=== PATIENT | female | born 1955 | race Caucasian/White ===

== ENCOUNTER 2018-09-16 19:46 | Inpatient (IN) | payer BC ==
[~2018-09-16] VITALS: Ht 160 cm; Wt 64.9 kg
[2018-09-16 19:51] VITALS: BP 105/60
--- NOTE | 2018-09-16 19:51 | NUR ---
TO BED # 9 VIA W/C, REPORT GIVEN TO LORETTA BENSON
--- NOTE | 2018-09-16 20:11 | NUR ---
63/F presents to ED for evaluation of left foot pain, and left upper arm pain s/p fall. Pt reports she fell from a 6 foot ladder on Wednesday and was taken to [facility] where she was dx with a left heel fracture and left humerus fracture. Pt noted with a short leg splint to left foot and left arm in a sling, no splint. Pt states she has been unable to care for herself at home. Pt states she called her PMD and was advised to come to ED for evaluation. Pt c/o severe pain to left foot and left arm. Pt states "They kicked me out since I'm not a [facility] patient." AOX4, clear speech. NAD noted at this time. VSS. Pt waiting for ERMD. Will continue to monitor.
[2018-09-16] MEDS ORDERED: ACETAMINOPHEN/CODEINE 300/30MG 1 TAB PO ONE (20:30)
--- NOTE | 2018-09-16 20:44 | NUR ---
X-Ray at bedside.
--- NOTE | 2018-09-16 21:02 | NUR ---
Kelly lewis in ED - 09/16/18 at 2102 by [facility] Pt taken to CT via
--- NOTE | 2018-09-16 21:02 | NUR ---
PT TAKEN TO CT AT THIS TIME
--- NOTE | 2018-09-16 21:19 | NUR ---
Kelly lewis in ED - 09/16/18 at 2119 by DAVON PT RETURNED FROM CT AT THIS TIME
--- NOTE | 2018-09-16 21:19 | NUR ---
PATIENT RETURN FROM CT.
[2018-09-16] MEDS ORDERED: LEVO0.114 PO (22:09)
[2018-09-16] MEDS ORDERED: MORPHINE SULFATE 2 MG/ML SYR IVP PRN (22:20)
[2018-09-16] MEDS ORDERED: ZOLPIDEM 5 MG TAB PO PRN (22:20)
[2018-09-16] MEDS ORDERED: ACETAMINOPHEN 325 MG TAB PO PRN (22:20)
[2018-09-16] MEDS ORDERED: DOCUSATE SODIUM 100 MG GELCAP PO PRN (22:20)
[2018-09-16] MEDS ORDERED: LORazepam 2 MG/ML VIAL IM/IVP PRN (22:20)
[2018-09-16] MEDS ORDERED: ONDANSETRON 4 MG/2 ML VIAL IM/IVP PRN (22:20)
--- NOTE | 2018-09-16 22:22 | NUR ---
Admit orders input by resident.
[2018-09-16] MEDS ORDERED: PANTOPRAZOLE 40 MG TABEC PO SCH (23:00)
--- NOTE | 2018-09-16 23:25 | NUR ---
Patient will be admitted to care of Dr. Gama. Admited to TELE. Will go to room 124-B. Belongings list completed. Report to Dee BENSON.
[2018-09-16 23:30] VITALS: BP 111/41
[2018-09-16] MEDS ORDERED: ALUMINUM HYD/MAG/SIMETHICONE 30 ML UDC PO SCH (23:30)
--- NOTE | 2018-09-16 23:30 | NUR ---
PT ARRIVED VIA GURNEY AND IS CURRENTLY UNABLE TO WALK DUE TO LEFT CALCANEUS FRACTURE. PT ALSO HAS LEFT HUMERUS FRACTURE. PT SCOOTED FROM GURNEY TO BED. PT TOLERATED WELL. RECEIVED REPORT FROM ER NURSE. PT AOX4, ON ROOM AIR WITH RIGHT HAND #20G. DISCUSSED PLAN OF CARE AND PT VERBALIZED UNDERSTANDING. VITAL SIGNS TAKEN AND MRSA SWAB COLLECTED- PT TOLERATED WELL. NO S/S OF RESPIRATORY DISTRESS OR DISCOMFORT NOTED AT THIS TIME. BED IN LOWEST POSITION, BED BREAKS ON, BOTH SIDE RAILS UP, BE ALARM ON AND FALL PRECAUTIONS IN PLACE. BEDSIDE TABLE AND CALL LIGHT TO BE KEPT ON RIGHT SIDE OF BODY. WILL CONTINUE TO MONITOR.
[2018-09-16 23:34] LABS: BASOPHILS # (AUTO) 0.1 K/uL (0.00-0.22); BASOPHILS % (AUTO) 0.8 % (0.0-2.0); EOSINOPHILS # (AUTO) 0.2 K/uL (0-0.4); EOSINOPHILS % (AUTO) 1.7 % (0.0-4.0); HEMATOCRIT 39.6 % (36-48); HEMOGLOBIN 13.1 g/dL (12.0-16.0); LYMPHOCYTES % (AUTO) 26.7 % (20.5-51.1); MEAN CORPUSCULAR HEMOGLOBIN 30 pg (27-31); MEAN CORPUSCULAR HGB CONC 33 g/dL (33-37); NEUTROPHILS # (AUTO) 6.9 K/uL (1.8-7.7); NEUTROPHILS % (AUTO) 61.8 % (42.2-75.2); PLATELET COUNT (AUTO) 163 K/uL (140-450); RED BLOOD CELL COUNT(AUTO) 4.31 MIL/uL (4.20-5.40); RED CELL DISTRIBUTION WIDTH 13.9 % (11.6-13.7); WHITE BLOOD COUNT (AUTO) 11.1 K/uL (4.8-10.8)
[2018-09-16 23:56] LABS: ALBUMIN 3.5 g/dL (3.4-5.0); CHOL/HDL RATIO 5.4 (1-4.5); CREATININE 1.1 mg/dL (0.6-1.3); MAGNESIUM 2.2 mg/dL (1.8-2.4); THYROID STIMULATING HORMONE 21.62 uIU/mL (0.34-3.74); TOTAL BILIRUBIN 0.4 mg/dL (0.0-1.0)
[2018-09-17 00:10] LABS: PROTHROMBIN TIME 9.4 secs (10.8-13.4)
[2018-09-17] MEDS ORDERED: ACETAMINOPHEN/CODEINE 300/30MG 1 TAB PO PRN (00:10)
[2018-09-17] MEDS: NACL 0.9% 1,000 ML IV SCH ×2 (00:23→13:54)
--- NOTE | 2018-09-17 00:23 | NUR ---
SCHEDULED MEDICATIONS GIVEN AND TOLERATED WELL. PT HAS NOT HAD A BM SINCE Wednesday09/13/2018 AND WAS GIVEN COLACE. MD GARDNER AWARE. PT TOLERATED WELL. NEW BAG OF IVF HUNG. PT REFUSING SUPPOSITORY AT THIS TIME. NO S/S OF RESPIRATORY DISTRESS OR DISCOMFORT NOTED AT THIS TIME. WILL CONTINUE TO MONITOR.
[2018-09-17] MEDS ORDERED: BISACODYL 10 MG SUPP RC SCH ×3 (01:00→22:00)
--- NOTE | 2018-09-17 02:00 | NUR ---
PT SLEEPING IN BED. NO S/S OF RESPIRATORY DISTRESS OR DISCOMFORT NOTED AT THIS TIME. WILL CONTINUE TO MONITOR.
[2018-09-17 04:00] VITALS: BP 102/55
--- NOTE | 2018-09-17 04:00 | NUR ---
VITAL SIGNS TAKEN AND TOLERATED WELL. NO S/S OF RESPIRATORY DISTRESS OR DISCOMFORT NOTED AT THIS TIME. WILL CONTINUE TO MONITOR.
--- NOTE | 2018-09-17 04:20 | NUR ---
CONSENT SIGNED FOR MEDICAL RECORDS FROM [facility] TO BE RELEASED TO [facility] BY PT. FORMS HAVE BEEN FAXED AND RECEIVED SUCCESSFULLY.
[2018-09-17] MEDS: LEVOTHYROXINE 0.112 MG TAB PO SCH (06:01)
[2018-09-17] MEDS: PANTOPRAZOLE 40 MG TABEC PO SCH (06:01)
--- NOTE | 2018-09-17 06:01 | NUR ---
SCHEDULED MEDICATION GIVEN AND TOLERATED WELL. NO S/S OF RESPIRATORY DISTRESS OR DISCOMFORT NOTED AT THIS TIME. WILL CONTINUE TO MONITOR.
--- NOTE | 2018-09-17 07:19 | NUR ---
ENDORSED PT CARE TO DAY SHIFT NURSE KASHIF FOR CONTINUITY OF CARE.
--- NOTE | 2018-09-17 07:20 | NUR ---
RECEIVED REPORT FROM THE TURRET PUNCH PRESS OPERATOR NURSE AT BEDSIDE FOR CONTINUITY OF CARE. PT IS AWAKE AND ORIENTED. INTRODUCED MYSELF AND UPDATED THE BOARD. PT IS ON TELE. ON BEDREST. PT IS WEARING AN L ARM SLING AND LLE CAST. OTHERWISE SKIN IS INTACT. LAST BM ON 09/13/18. IV ON R HAND 20G, NS AT 60ML INFUSING. L LEG IS ELEVATED WITH PILLOW. LABS ARE UNREMARKABLE. PAIN LEVEL ABOUT A 3/10. TOLERABLE. WILL ASK FOR PAIN MED WHEN IT GETS WORSE. PT IS NPO EXCEPT MEDS. AWAITING DR SCRUGGS FOR CONSULT. WILL CONTINUE TO MONITOR PT.
[2018-09-17 07:24] LABS: BASOPHILS % (AUTO) 0.5 % (0.0-2.0); EOSINOPHILS # (AUTO) 0.2 K/uL (0-0.4); EOSINOPHILS % (AUTO) 2.9 % (0.0-4.0); HEMATOCRIT 36.4 % (36-48); HEMOGLOBIN 12.2 g/dL (12.0-16.0); LYMPHOCYTES # (AUTO) 2.2 K/uL (2.5-16.5); LYMPHOCYTES % (AUTO) 27.7 % (20.5-51.1); MEAN CORPUSCULAR HEMOGLOBIN 31 pg (27-31); MEAN CORPUSCULAR HGB CONC 34 g/dL (33-37); MEAN CORPUSCULAR VOLUME 92.1 fL (80-94); MONOCYTES # (AUTO) 0.9 K/uL (0.8-1.0); MONOCYTES % (AUTO) 11.2 % (1.7-9.3); NEUTROPHILS # (AUTO) 4.6 K/uL (1.8-7.7); NEUTROPHILS % (AUTO) 57.7 % (42.2-75.2); PLATELET COUNT (AUTO) 143 K/uL (140-450); RED BLOOD CELL COUNT(AUTO) 3.95 MIL/uL (4.20-5.40); RED CELL DISTRIBUTION WIDTH 13.9 % (11.6-13.7); WHITE BLOOD COUNT (AUTO) 7.9 K/uL (4.8-10.8)
[2018-09-17 07:44] LABS: CARBON DIOXIDE 26.9 mmol/L (21-32); POTASSIUM 3.9 mmol/L (3.5-5.1)
[2018-09-17 07:51] LABS: MAGNESIUM 2.4 mg/dL (1.8-2.4); PHOSPHORUS 4.7 mg/dL (2.5-4.9)
[2018-09-17 08:00] VITALS: BP 139/49
[2018-09-17] MEDS: HYDROcodone/APAP 5/325 MG 1 TAB TAB PO PRN ×3 (09:15→21:59)
--- NOTE | 2018-09-17 09:17 | NUR ---
ADMINISTERED NORCO FOR PAIN. PAIN LEVEL 5/10. WILL HOLD THE SUPPOSITORY FOR LATER PER PT. SHE WOULD LIKE TO SLEEP IF SHE CAN. WILL LET ME KNOW WHEN SHE WOULD LIKE IT. PT TOLERATED WELL. WILL CONTINUE TO MONITOR PT.
--- NOTE | 2018-09-17 11:30 | NUR ---
ASSISTED PODIATRY REAPPLY THE TEMP CAST. PER PODIATRY, PT WILL BE SCHEDULED FOR SURGERY ON Wednesday. ELEVATED LEFT LEG TO REDUCE SWELLING. PT TOLERATED WELL. WILL CONTINUE TO MONITOR PT.
[2018-09-17 12:00] VITALS: BP 107/33
--- NOTE | 2018-09-17 13:45 | NUR ---
ICE PACK AND EXTRA PILLOW FOR HER PT'S L LEG TO HELP WITH INFLAMMATION AND PAIN.
[2018-09-17 16:00] VITALS: BP 102/35
--- NOTE | 2018-09-17 16:20 | NUR ---
ADMINISTERED NORCO. PT IN PAIN 03/27. PT TOLERATED WELL. WILL CONTINUE TO MONITOR PT.
--- NOTE | 2018-09-17 18:39 | NUR ---
ADMINISTERED THE SUPPOSITORY. PT REQUESTED IT. WILL CONTINUE TO MONITOR PT. CULLET TRUCKER'S NOTIFIED TO KEEP CLOSE MONITORING.
[2018-09-17] MEDS ORDERED: BISACODYL 10 MG SUPP RC ONE (18:40)
--- NOTE | 2018-09-17 19:10 | NUR ---
ENDORSED PT TO THE MAINTENANCE ASSOCIATE NURSE AT BEDSIDE FOR CONTINUITY OF CARE. PT IS IN STABLE CONDITION. NO BM YET.
--- NOTE | 2018-09-17 19:12 | NUR ---
RECEIVED REPORT FROM DAY SHIFT NURSE. AAOX4. NO C/O PAIN AT THIS TIME. NO SOB. ON ROOM AIR. IV TO RIGHT FA #20G, NS AT 60 ML, INFUSING WELL. PT HAS LEFT ARM SLING AND CAST TO LEFT LOWER EXT. SAFETY PRECAUTION IN PLACE. CALL LIGHT WITHIN REACH.
[2018-09-17 20:00] VITALS: BP 110/44
--- NOTE | 2018-09-17 21:35 | NUR ---
PT HAD MODERATE BMX1. DR. GARDNER MADE AWARE. STATED SHE WILL CANCEL DULCOLAX SUPP ORDER DUE AT 2200.
--- NOTE | 2018-09-17 23:45 | NUR ---
PT AWAKE, WATCHING TV. NO C/O PAIN AT THIS TIME. NO SOB. IVF INFUSING WELL. ICE PACK BEHIND LEFT KNEE IN PLACE.
[2018-09-18] VITALS: BP 103/55
--- NOTE | 2018-09-18 02:00 | NUR ---
PT SLEEPING BUT EASILY AROUSABLE. RESP EVEN AND UNLABORED. NO S/S OF PAIN. CALL LIGHT WITHIN REACH.
[2018-09-18] MEDS: HYDROcodone/APAP 5/325 MG 1 TAB TAB PO PRN ×4 (02:27→19:49)
[2018-09-18 04:00] VITALS: BP 109/47
--- NOTE | 2018-09-18 04:30 | NUR ---
PT SLEEPING. NO S/S OF OF PAIN. NO S/S OF RESP DISTRESS. CALL LIGHT WITHIN REACH.
--- NOTE | 2018-09-18 05:45 | NUR ---
PT AWAKE. PT ASKED FOR BEDPAN. BEDPAN PROVIDED. ALL NEEDS MET AT THIS TIME. SAFETY PRECAUTION IN PLACE. CALL LIGHT WITHIN REACH.
[2018-09-18] MEDS: PANTOPRAZOLE 40 MG TABEC PO SCH (05:48)
[2018-09-18] MEDS: LEVOTHYROXINE 0.112 MG TAB PO SCH (05:48)
[2018-09-18 07:05] LABS: BASOPHILS % (AUTO) 0.5 % (0.0-2.0); EOSINOPHILS # (AUTO) 0.2 K/uL (0-0.4); EOSINOPHILS % (AUTO) 3.9 % (0.0-4.0); HEMOGLOBIN 11.5 g/dL (12.0-16.0); LYMPHOCYTES # (AUTO) 1.7 K/uL (2.5-16.5); LYMPHOCYTES % (AUTO) 30.3 % (20.5-51.1); MEAN CORPUSCULAR HEMOGLOBIN 31 pg (27-31); MEAN CORPUSCULAR HGB CONC 34 g/dL (33-37); MEAN CORPUSCULAR VOLUME 91.8 fL (80-94); MONOCYTES # (AUTO) 0.6 K/uL (0.8-1.0); MONOCYTES % (AUTO) 9.8 % (1.7-9.3); NEUTROPHILS # (AUTO) 3.2 K/uL (1.8-7.7); NEUTROPHILS % (AUTO) 55.5 % (42.2-75.2); PLATELET COUNT (AUTO) 165 K/uL (140-450); RED BLOOD CELL COUNT(AUTO) 3.71 MIL/uL (4.20-5.40); RED CELL DISTRIBUTION WIDTH 13.8 % (11.6-13.7); WHITE BLOOD COUNT (AUTO) 5.8 K/uL (4.8-10.8)
--- NOTE | 2018-09-18 07:25 | NUR ---
RECEIVED PATIENT REPORT AT BEDSIDE. PATIENT AWAKE, ALERT AND ORIENTED. NO S/S OF DISTRESS. LEFT LEG ELEVATED AND WRAPPED WITH CLEAN DRESSING. LEFT ARM WITH A SLING. NO C/O PAIN AT THIS TIME. FALL PRECAUTIONS IN PLACE. WILL CONTINUE TO MONITOR
--- NOTE | 2018-09-18 07:25 | NUR ---
ENDORSED PT TO DAY SHIFT NURSE. PT IN STABLE CONDITION.
[2018-09-18 07:42] VITALS: BP 120/63
[2018-09-18] MEDS: NACL 0.9% 1,000 ML IV SCH (08:20)
[2018-09-18 08:31] LABS: ANION GAP 11.8 (8-16); CARBON DIOXIDE 24.3 mmol/L (21-32); POTASSIUM 4.1 mmol/L (3.5-5.1)
[2018-09-18 08:32] LABS: CREATININE 0.8 mg/dL (0.6-1.3)
--- NOTE | 2018-09-18 09:00 | NUR ---
PATIENT'S LEG DRESSING CHANGED BY DR BAZZI. PT TOLERATED WELL
[2018-09-18 11:32] VITALS: BP 106/46
--- NOTE | 2018-09-18 11:48 | NUR ---
PATIENT HAS BEEN SCREENED AND CATEGORIZED MODERATE NUTRITION RISK. PATIENT WILL BE SEEN WITHIN 3-5 DAYS OF ADMISSION. 09/19/18 09/21/18 SMITH ZAMUDIO MBA, RD
--- NOTE | 2018-09-18 13:48 | NUR ---
PATIENT AWAKE IN BED WITH FAMILY MEMBERS PRESENT AT BEDSIDE. NO S/S OF DISTRESS NOTED
[2018-09-18 16:00] VITALS: BP 137/56
[2018-09-18] MEDS ORDERED: KETOROLAC 15 MG/ML VIAL IM PRN (17:45)
--- NOTE | 2018-09-18 18:45 | NUR ---
PT VOIDED. URINE SAMPLE OBTAINED AND SENT TO THE LAB
--- NOTE | 2018-09-18 19:24 | NUR ---
PATIENT REPORT GIVEN TO HOSE SPRAYER NURSE. PATIENT ENDORSED IN STABLE CONDITION
--- NOTE | 2018-09-18 19:25 | NUR ---
RECEIVED REPORT FROM DAY SHIFT NURSE. PT IN BED, SLEEPING. NO S/S OF PAIN OR SOB. IV TO RIGHT FA, NS AT 10 ML/HR INFUSING WELL. PT HAS LEFT LOWER EXT CAST AND LEFT SHOULDER SLING. SAFETY PRECAUTION IN PLACE. CALL LIGHT WITHIN REACH.
[2018-09-18 19:44] LABS: APPEARANCE,URINE CLEAR (CLEAR); BILIRUBIN,URINE NEGATIVE (NEGATIVE); BLOOD, URINE MODERATE (NEGATIVE); COLOR,URINE YELLOW (YELLOW); LEUKOCYTE ESTERASE ,URINE SMALL (NEGATIVE); NITRITE, URINE NEGATIVE (NEGATIVE); UGLUCOSE NEGATIVE (NEGATIVE)
--- NOTE | 2018-09-18 19:49 | NUR ---
PT C/O PAIN /10. NORCO 5/325 MG GIVEN. PT ASKED FOR BEDPAN. BEDPAN AND [facility] PROVIDED .
[2018-09-18 20:00] VITALS: BP 111/53
[2018-09-18 20:06] LABS: RBC,URINE 11-20 (MOD) /HPF (0-5); WBC,URINE 20-60 /HPF (0-5)
--- NOTE | 2018-09-18 22:00 | NUR ---
PT IN BED, AWAKE. NO C/O PAIN. ALL NEEDS MET AT THIS TIME. CALL LIGHT WITHIN REACH.
[2018-09-19] VITALS: BP 120/62
[2018-09-19] MEDS ORDERED: ALUMINUM HYD/MAG/SIMETHICONE 30 ML UDC PO ONE (00:25)
[2018-09-19] MEDS: HYDROcodone/APAP 5/325 MG 1 TAB TAB PO PRN ×4 (00:37→20:45)
--- NOTE | 2018-09-19 00:37 | NUR ---
PT C/O STOMACH PAIN. PT STATED SHE'S HAVING ACID REFLUX. DR. GARDNER MADE AWARE AND ORDERED MAALOX. PT ALSO C/O DEBO. LEG PAIN. NORCO 5/325 MG GIVEN.
--- NOTE | 2018-09-19 02:40 | NUR ---
PT REFUSED TO PUT ICE PACK BEHIND LEFT KNEE. PT WANTS ANOTHER KIND OF ICE PACK. PER HOUSE SUP, WE ONLY HAVE ONE KIND OF ICE PACK AVAILABLE. PT MADE AWARE AND EXPLAINED TO PT THE RISK OF REFUSING AND BENEFITS OF ICE PACK, PT STILL REFUSED.
[2018-09-19 04:00] VITALS: BP 133/59
--- NOTE | 2018-09-19 04:50 | NUR ---
PT SLEEPING BUT EASILY AROUSABLE. NO S/S OF PAIN. NO S/S OF RESP DISTRESS.
[2018-09-19] MEDS: LEVOTHYROXINE 0.112 MG TAB PO SCH (05:56)
[2018-09-19] MEDS: PANTOPRAZOLE 40 MG TABEC PO SCH (05:57)
--- NOTE | 2018-09-19 07:00 | NUR ---
DR. GUTIÉRREZ IS HERE TO SEE PT. PT SLEEPING . NO S/S OF ACUTE DISTRESS.
--- NOTE | 2018-09-19 07:10 | NUR ---
ENDORSED PT TO DAY SHIFT NURSE. PT IN STABLE CONDITION.
--- NOTE | 2018-09-19 07:11 | NUR ---
RECEIVED REPORT FROM NIGHT NURSE. PT IN STABLE CONDITION. RESPIRATIONS EVEN AND UNLABORED. IV 20G RIGHT FA, INTACT AND PATENT. LEFT SLING IN PLACE, LEFT LEG SOFT CAST IN PLACE. BED IN LOW POSITION. REVIEWED CARE PLAN WITH PT, PT VERBALIZED UNDERSTANDING OF PLAN. SAFETY MEASURES IN PLACE. CALL LIGHT AT BEDSIDE. WILL CONTINUE TO MONITOR.
[2018-09-19 07:23] LABS: BASOPHILS % (AUTO) 0.2 % (0.0-2.0); EOSINOPHILS % (AUTO) 0.5 % (0.0-4.0); HEMATOCRIT 38.1 % (36-48); HEMOGLOBIN 12.9 g/dL (12.0-16.0); LYMPHOCYTES # (AUTO) 0.5 K/uL (2.5-16.5); LYMPHOCYTES % (AUTO) 8.3 % (20.5-51.1); MEAN CORPUSCULAR HEMOGLOBIN 31 pg (27-31); MEAN CORPUSCULAR HGB CONC 34 g/dL (33-37); MEAN CORPUSCULAR VOLUME 90.4 fL (80-94); MONOCYTES # (AUTO) 0.2 K/uL (0.8-1.0); MONOCYTES % (AUTO) 3.1 % (1.7-9.3); NEUTROPHILS # (AUTO) 5.6 K/uL (1.8-7.7); NEUTROPHILS % (AUTO) 87.9 % (42.2-75.2); PLATELET COUNT (AUTO) 172 K/uL (140-450); RED BLOOD CELL COUNT(AUTO) 4.21 MIL/uL (4.20-5.40); RED CELL DISTRIBUTION WIDTH 13.8 % (11.6-13.7); WHITE BLOOD COUNT (AUTO) 6.4 K/uL (4.8-10.8)
[2018-09-19 07:36] LABS: ANION GAP 13.1 (8-16); CARBON DIOXIDE 25.6 mmol/L (21-32); CREATININE 0.9 mg/dL (0.6-1.3); POTASSIUM 3.7 mmol/L (3.5-5.1)
[2018-09-19 08:00] VITALS: BP 118/57
--- NOTE | 2018-09-19 08:00 | NUR ---
PT REFUSED ICE PACK FOR LEFT CALCANEUS FX. PT STATED UNLESS THE ICE PACK IS DIFFERENT THEN THE CLIP BAGS WE HAVE SHE DOESN'T WANT IT, BECAUSE SHE USED ONE IN THE PAST AND IT LEAKED ALL OVER HER BED AND HER.
[2018-09-19] MEDS: NACL 0.9% 1,000 ML IV SCH ×2 (08:20→23:41)
--- NOTE | 2018-09-19 10:00 | NUR ---
PT LYING IN BED SLEEPING AT THIS TIME. RESPIRATIONS EVEN AND UNLABORED. WILL CONTINUE TO MONITOR.
--- NOTE | 2018-09-19 10:32 | NUR ---
RECEIVED ORDER THIS MORNING FOR PATIENT TO BE TRANSFERED TO [facility] FOR SURGERY AND REHAB. I CALLED [facility] [phone] AND SPOKE WITH MICHEAL AND FAXED INQUIRY AND ORDER TO HER AT [phone]. I RECEIVED A CALL FROM PARAMJIT AT [facility] ON MY ANSWERING MACHINE AND THE SAID [facility] WAS GOOD WITH THE INSURANCE, BUT NEEDED AUTH FROM [employer]. PER ASIF, THE REVIEW WITH THE ORDER WAS FAXED TO [facility] AT [phone] PHONE [phone]. I CALLED [facility] AND SPOKE WITH PANDA. SHE SAID THEY DID RECEIVED THE REVIEW AND ORDER, BUT NO PILL PACKER ASSIGNED YET. I INFORMED HER THAT [facility] NEEDED THE AUTH FROM [employer]. SHE TOOK MY PHONE NUMBER AND WILL CALL BACK. I CALLED PARAMJIT AT [facility] AND INFORMED HER THAT I AM STILL TRYING TO GET THE AUTH FROM [employer].
[2018-09-19 12:00] VITALS: BP 111/49
[2018-09-19] MEDS ORDERED: SULFAMETH/TRIMETH DS 800/160MG 1 TAB PO SCH ×2 (13:07→21:00)
[2018-09-19] MEDS ORDERED: INSULIN LISPRO SLIDING SCALE 100 UNITS/ML VIAL SUBQ PRN (13:10)
[2018-09-19] MEDS ORDERED: DEXTROSE 50% 50 ML SYR IVP PRN (13:10)
--- NOTE | 2018-09-19 13:20 | NUR ---
GAVE ORDERED DUE MEDICATIONS, PT TOLERATED WELL. ASSISTED PT WITH BED GARCIA. BED IN LOW POSITION. CALL LIGHT AT BEDSIDE. WILL CONTINUE TO MONITOR.
[2018-09-19] MEDS ORDERED: NITROFURANTOIN 100 MG CAP PO SCH (13:28)
--- NOTE | 2018-09-19 13:32 | NUR ---
CALLED EARLIER TO [facility] AND WAS TOLD BY KELLY THAT HER JEWEL HOLE GAUGER HAS FAXED EVERYTHING TO [facility] TO REVIEW. I RECEIVED A CALL FROM MARITZA FROM [facility] AND SHE SAID THAT SHE DOES NOT GIVE AUTH, THAT THE ACCEPTING FACILITY MUST INITIATE A NEW PRE CERT. PHONE FOR MARITZA [phone]. [address] DIETZ TO GET FURTHER INFORMATION ON REASON FOR TRANSFER. SHE SAID IT WAS FOR HLOC AND SHE PUT IN AN ORDER. I CALLED PARAMJIT AT [facility], [phone] AND FAXED HER THE ORDER. I PUT A CALL IN TO MARITZA AT [facility] AND LEFT MESSAGE.
[2018-09-19] MEDS ORDERED: LACTOBACILLUS RHAMNOSUS GG 1 EACH CAP PO SCH (13:36)
--- NOTE | 2018-09-19 13:40 | NUR ---
BACTRIM ORDERED AT 1307 THEN DISCONTINUED AT [address] IN PLACE. NO MISSED DOSE. TALKED TO PHARMACY TO HAVE DISCONTINUED MEDICATION REMOVED.
[2018-09-19] MEDS: LACTOBACILLUS RHAMNOSUS GG 1 EACH CAP PO SCH (13:43)
--- NOTE | 2018-09-19 13:51 | NUR ---
SPOKE WITH MARITZA AT [facility]. SHE SAID TO FAX THE ORDER FOR TRANSFER TO [facility] AT [phone], WHICH I DID.
[2018-09-19 16:00] VITALS: BP 110/45
--- NOTE | 2018-09-19 16:15 | NUR ---
ASSISTED PT WITH BED GARCIA. VITALS TAKEN, PT IN STABLE CONDITION. WILL CONTINUE TO MONITOR.
[2018-09-19] MEDS: BLOOD GLUCOSE MONITORING 1 DEV DEV FS SCH ×2 (16:30→20:04)
--- NOTE | 2018-09-19 17:00 | NUR ---
GAVE DUE ORDERED MEDICATIONS, PT TOLERATED WELL. PT WATCHING TV IN STABLE CONDITION. WILL CONTINUE TO MONITOR.
[2018-09-19] MEDS: NITROFURANTOIN 100 MG CAP PO SCH (17:32)
--- NOTE | 2018-09-19 19:13 | NUR ---
GAVE REPORT TO NIGHT NURSE FOR CONTINUITY OF CARE. PT IN STABLE CONDITION.
--- NOTE | 2018-09-19 19:15 | NUR ---
RECEIVED BEDSIDE REPORT FROM DAY SHIFT RN. PT IS A&O X4. RESPIRATIONS ARE EQUAL AND UNLABORED. HAS IV ON RIGHT FA 20G INFUSING NS AT 70ML/H. DRESSING CLEAN DRY AND INTACT. PT WITH LEFT SOFT CAST ON FOOT AND LEFT ARM SLING. SKIN INTACT. HAS SOME BRUISES ON ARMS. PULSES ARE STRONG ON ALL EXTREMITIES. HAS SOME EDEMA ON BLE. PLAN OF CARE REVIEWED. ALL SAFETY MEASURES ARE IN PLACE. CALL LIGHT WITHIN REACH. WILL CONTINUE TO MONITOR.
[2018-09-19 20:00] VITALS: BP 109/47
--- NOTE | 2018-09-19 20:45 | NUR ---
VITAL SIGNS ARE WITHIN NORMAL LIMITS. DUE MEDICATIONS GIVEN PT TOLERATED WILL. ALL NEEDS MET AT THIS TIME. WILL CONTINUE TO MONITOR.
--- NOTE | 2018-09-19 22:16 | NUR ---
PT IS SLEEPING NO DISTRESS NOTED. CALL LIGHT WITHIN REACH. WILL CONTINUE TO MONITOR.
[2018-09-20] VITALS: BP 107/44
--- NOTE | 2018-09-20 | NUR ---
VITAL SIGNS ARE WITHIN NORMAL LIMITS. ALL SAFETY MEASURES IN PLACE. CALL LIGHT WITHIN REACH.
--- NOTE | 2018-09-20 02:32 | NUR ---
PT SLEEPING. RESPIRATIONS ARE EQUAL AND UNLABORED. NO DISTRESS NOTED. ALL SAFETY MEASURES IN PLACE.
[2018-09-20] MEDS: HYDROcodone/APAP 5/325 MG 1 TAB TAB PO PRN ×3 (03:17→13:18)
[2018-09-20 03:54] VITALS: BP 130/49
--- NOTE | 2018-09-20 04:00 | NUR ---
VITAL SIGNS ARE WITHIN NORMAL LIMITS. ALL NEEDS MET AT THIS TIME. CALL LIGHT WITHIN REACH.
--- NOTE | 2018-09-20 04:00 | NUR ---
VITAL SIGNS ARE WITHIN NORMAL LIMITS. ALL NEEDS MET AT THIS TIME. SAFETY MEASURES IN PLACE. WILL CONTINUE TO MONITOR.
[2018-09-20] MEDS: PANTOPRAZOLE 40 MG TABEC PO SCH (05:48)
[2018-09-20] MEDS: BLOOD GLUCOSE MONITORING 1 DEV DEV FS SCH (05:52)
[2018-09-20] MEDS ORDERED: LEVOTHYROXINE 0.025 MG TAB PO SCH (06:30)
[2018-09-20] MEDS ORDERED: LEVOTHYROXINE 0.1 MG, LEVOTHYROXINE 0.025 MG PO SCH ×2 (06:30)
[2018-09-20 06:50] LABS: BASOPHILS % (AUTO) 0.2 % (0.0-2.0); EOSINOPHILS % (AUTO) 0.7 % (0.0-4.0); HEMATOCRIT 33.9 % (36-48); HEMOGLOBIN 11.5 g/dL (12.0-16.0); LYMPHOCYTES % (AUTO) 14.4 % (20.5-51.1); MEAN CORPUSCULAR HEMOGLOBIN 31 pg (27-31); MEAN CORPUSCULAR HGB CONC 34 g/dL (33-37); MEAN CORPUSCULAR VOLUME 90.6 fL (80-94); MONOCYTES # (AUTO) 0.4 K/uL (0.8-1.0); MONOCYTES % (AUTO) 5.4 % (1.7-9.3); NEUTROPHILS # (AUTO) 5.3 K/uL (1.8-7.7); NEUTROPHILS % (AUTO) 79.3 % (42.2-75.2); PLATELET COUNT (AUTO) 159 K/uL (140-450); RED BLOOD CELL COUNT(AUTO) 3.75 MIL/uL (4.20-5.40); RED CELL DISTRIBUTION WIDTH 13.6 % (11.6-13.7); WHITE BLOOD COUNT (AUTO) 6.7 K/uL (4.8-10.8)
--- NOTE | 2018-09-20 07:26 | NUR ---
ENDORSED PT TO DAY SHIFTY RN. PT IN STABLE CONDITION.
--- NOTE | 2018-09-20 07:27 | NUR ---
RECEIVED REPORT FROM NIGHT NURSE. PT IN STABLE CONDITION. RESPIRATIONS EVEN AND UNLABORED. IV INTACT, PATENT. REVIEWED CARE PLAN WITH PT, PT VERBALIZED UNDERSTANDING. SAFETY MEASURES IN PLACE. CALL LIGHT AT BEDSIDE. BED IN LOW POSITION. WILL CONTINUE TO MONITOR.
[2018-09-20 07:30] LABS: ANION GAP 14.3 (8-16); CARBON DIOXIDE 24.5 mmol/L (21-32); CREATININE 0.8 mg/dL (0.6-1.3); POTASSIUM 3.8 mmol/L (3.5-5.1)
[2018-09-20 08:00] VITALS: BP 118/69
--- NOTE | 2018-09-20 08:49 | NUR ---
CALLED [facility] THIS AM AND SPOKE WITH MARITZA FROM [facility]. SHE SAID THAT FOR TRANSFER, NEED TO GO TROUGH PRECERT FOR [facility]. I CALLED [facility], AND SPOKE WITH ALIZE. HE SAID THAT THE TRANSFER NEEDS TO START WITH THE ACCEPTING FACILITY AND FOR THEM TO GO THROUGH PRECERT. I CALLED PARAMJIT AT [facility] AND INFORMED HER. SHE SAID SHE WOULD WORK ON TRANSFERING THIS PATIENT. DR MIRELA RUFF.
--- NOTE | 2018-09-20 09:00 | NUR ---
GAVE ORDERED DUE MEDICATIONS, PT TOLERATED WELL. WILL CONTINUE TO MONITOR.
[2018-09-20] MEDS: NITROFURANTOIN 100 MG CAP PO SCH (09:30)
[2018-09-20] MEDS: LACTOBACILLUS RHAMNOSUS GG 1 EACH CAP PO SCH (09:31)
--- NOTE | 2018-09-20 10:05 | NUR ---
RECEIVED A CALL FROM MICHEAL FROM [employer], [phone]. SHE SAID SHE FAXED INFORMATION TO MARCEL AT [facility] AND MARKED IT STAT. I SPOKE WITH THE PATIENT AND INFORMED HER THAT [employer] [facility] IS STILL TRYING TO GET AUTH FROM [facility].
--- NOTE | 2018-09-20 11:00 | NUR ---
ASSISTED PT WITH BEDPAN. WILL CONTINUE TO MONITOR.
[2018-09-20 12:00] VITALS: BP 116/47
--- NOTE | 2018-09-20 13:18 | NUR ---
SPOKE WITH KRIS AT [facility]. [phone]. STILL WAITING FOR AUTH FROM [facility]. I CALLED MARITZA FROM [facility], [place].[phone]. SHE SAID SHE DID RECEIVED THE PRECERT AND SHE WILL BE REVIEWING THE INFORMATION. SHE SAID SHE WOULD CALL KRIS FROM [facility] WITH THE DECISION ON TRANSFER. I CALLED KRIS AT [facility] AND INFORMED HER AND GAVE HER THE PHONE NUMBER TO MARITZA,
--- NOTE | 2018-09-20 13:18 | NUR ---
PT EXPRESSED NEEDING PAIN MEDICATION. GAVE NORCO FOR FOOT PAIN. WILL CONTINUE TO MONITOR.
[2018-09-20] MEDS ORDERED: ONDA2SOL45 IM/IVP (13:59)
[2018-09-20] MEDS ORDERED: LEVO0.124 PO (13:59)
[2018-09-20] MEDS ORDERED: HEPA500056 SUBQ (13:59)
[2018-09-20] MEDS ORDERED: NITR100C15 PO (13:59)
[2018-09-20] MEDS ORDERED: MORP2SOL18 IVP (13:59)
[2018-09-20] MEDS ORDERED: ACET-1182 PO (13:59)
[2018-09-20] MEDS ORDERED: DOCU-299 PO (13:59)
[2018-09-20] MEDS ORDERED: ZOLP5TAB1 PO (13:59)
[2018-09-20] MEDS ORDERED: ACET-9525 PO (13:59)
[2018-09-20] MEDS ORDERED: PANT40EC28 PO (13:59)
[2018-09-20] MEDS ORDERED: LACT10CA PO (13:59)
--- NOTE | 2018-09-20 14:01 | NUR ---
RECEIVED A CALL FROM KRIS AT [facility]. THEY RECEIVED THE AUTH FROM [employer]. THE PATIENT CAN GO TO ROOM [address] JAMIA GUTIÉRREZ. CALL REPORT TO [phone], ANY TIME. I INFORMED MARTINEZ BENSONEDUCATIONAL THERAPIST NURSE. I INFORMED DR. DIETZ.
--- NOTE | 2018-09-20 14:23 | NUR ---
CALLED [facility] AND SPOKE WITH VALDE[facility]. SET UP S TRANSPORT FOR 3:30P.Gabrielle. MARTINEZ BENSON AWARE. WILLIAN BENSON AWARE.
--- NOTE | 2018-09-20 14:45 | NUR ---
GAVE REPORT TO ATIYA Garces, AT [facility], FOR PT TRANSFER. Mili VERBALIZED NO FURTHER QUESTIONS AT THIS TIME.
--- NOTE | 2018-09-20 15:50 | NUR ---
GAVE DISCHARGE INSTRUCTIONS PACKET TO PT, ALL QUESTIONS ANSWERED. REMOVED IV LINE, SALINE LOCK AT THIS TIME. GAVE REPORT TO TRANSPORT TEAM, ALL QUESTIONS ANSWERED AT THIS TIME. REMOVED ID BANDS. PT IN STABLE CONDITION.
== END 2018-09-20 15:50 | DRG 563 ==
LOC: MED 19:46 → MTU 22:19
PROVIDERS: ADMIT Family Medicine; ATTEND Family Medicine
DX: S92.002A Unspecified fracture of left calcaneus, initial encounter for closed fracture (principal); S42.202A Unspecified fracture of upper end of left humerus, initial encounter for closed fracture; E87.1 Hypo-osmolality and hyponatremia; N39.0 Urinary tract infection, site not specified; G62.9 Polyneuropathy, unspecified; K21.9 Gastro-esophageal reflux disease without esophagitis; E03.9 Hypothyroidism, unspecified; W11.XXXA Fall on and from ladder, initial encounter; S92.912A Unspecified fracture of left toe(s), initial encounter for closed fracture; D72.828 Other elevated white blood cell count; E78.5 Hyperlipidemia, unspecified; M79.7 Fibromyalgia; F17.210 Nicotine dependence, cigarettes, uncomplicated; E86.0 Dehydration; R73.03 Prediabetes; Z88.1 Allergy status to other antibiotic agents; Z88.0 Allergy status to penicillin; Z79.899 Other long term (current) drug therapy; Z98.51 Tubal ligation status; Z98.82 Breast implant status; Y93.89 Activity, other specified; Y92.89 Other specified places as the place of occurrence of the external cause; Y99.8 Other external cause status
CPT/HCPCS: 36415; 71045; 73060; 73630; 73700; 80048; 80053; 81001; 82948; 83036; 83690; 83735; 84100; 84134; 84443; 85025; 85610; 85730; 87081; 87086; 87186; 93005; 99285; J1644; J2405; J7030; Q0092